=== PATIENT | female | born 1985 | race American Indian/Alaskan Native ===

== ENCOUNTER 2017-08-19 14:16 | Emergency (ER) | payer OTHER ==
[2017-08-19 14:53] VITALS: BMI 24.1
[2017-08-19 14:54] VITALS: RESP 18
[2017-08-19] MEDS ORDERED: Sodium Chloride 0.9% 1,000 ML IV STA (15:02)
--- NOTE | 2017-08-19 15:26 | ED PDOC ---
Arrival/HPI - General Chief Complaint: GI Problem Time Seen by Provider: 08/19/17 14:58 Historian: Patient - History of Present Illness Narrative History of Present Illness (Text): 08/19/17 15:24 32yo female with no PMHx present with complaint of epigastric abdominal pain and multiple episodes of nonbloody/bilious vomiting since 0330am. States she celebrated her birthday last night by drinking unknown amount of alcohol. She denies melena, hematemesis, hematochezia, urinary symptoms, chest pain, fever, chills, sick contact, diarrhea. Past Medical History - Provider Review Nursing Documentation Reviewed: Yes - Infectious Disease Hx of Infectious Diseases: None - Psychiatric Hx Substance Use: No - Anesthesia Hx Anesthesia: No Family/Social History - Physician Review Nursing Documentation Reviewed: Yes Family/Social History: Unknown Family HX Smoking Status: Never Smoked Hx Alcohol Use: Yes Hx Substance Use: No Allergies/Home Meds Allergies/Adverse Reactions: Allergies seafood Adverse Reaction (Uncoded 08/19/17 14:53) ANAPHYLAXIS Review of Systems - Physician Review All systems were reviewed & negative as marked: Yes - Review of Systems Constitutional: Normal Eyes: Normal ENT: Normal Respiratory: Normal Cardiovascular: Normal Gastrointestinal: Abdominal Pain, Nausea, Vomiting. absent: Constipation, Diarrhea, Hematochezia, Hematemesis Genitourinary Female: Normal Musculoskeletal: Normal Skin: Normal Neurological: Normal Endocrine: Normal Hemo/Lymphatic: Normal Psychiatric: Normal Physical Exam Vital Signs Reviewed: Yes Vital Signs Temp Pulse Resp BP Pulse Ox 08/19/17 16:22 103 H 18 107/73 96 08/19/17 14:54 98.4 F 102 H 18 98/63 L 99 Temperature: Afebrile Blood Pressure: Normal Pulse: Tachycardic Respiratory Rate: Normal Appearance: Positive for: Well-Appearing, Non-Toxic, Comfortable Pain Distress: None Mental Status: Positive for: Alert and Oriented X 3 - Systems Exam Head: Present: Atraumatic, Normocephalic Pupils: Present: PERRL Extroacular Muscles: Present: EOMI Conjunctiva: Present: Normal Mouth: Present: Moist Mucous Membranes Neck: Present: Normal Range of Motion Respiratory/Chest: Present: Clear to Auscultation, Good Air Exchange. No: Respiratory Distress, Accessory Muscle Use Cardiovascular: Present: Regular Rate and Rhythm, Normal S1, S2. No: Murmurs Abdomen: Present: Tenderness (RLQ), Normal Bowel Sounds, Guarding (Voluntary), Other (soft). No: Distention, Peritoneal Signs, Rebound, McBurney's Point Tender, Rovsing's Sign Present Back: Present: Normal Inspection Upper Extremity: Present: Normal Inspection. No: Cyanosis, Edema Lower Extremity: Present: Normal Inspection. No: Edema Neurological: Present: GCS=15, CN II-XII Intact, Speech Normal Skin: Present: Warm, Dry, Normal Color. No: Rashes Psychiatric: Present: Alert, Oriented x 3, Normal Insight, Normal Concentration Medical Decision Making ED Course and Treatment: 08/19/17 18:06 PT in ED for stated history. she had RLQ tenderness and leukocyte with a shift. Abdominal/Pelvis CT was ordered to r/o appendicitis and it was negative. On re evaluation pt states she feels better. she was able to tolerate PO challenge in ED. She will be DC home with a rx of Zofran and pepcid. Advised to f/u with her PMD. TRT ED for any new or worsening symptoms - Lab Interpretations Lab Results: 08/19/17 16:00 08/19/17 16:00 Lab Results 08/19/17 17:00: PT 12.8 H, INR 1.12 H, APTT 24.0 L 08/19/17 16:00: Alcohol, Quantitative 15 H 08/19/17 16:00: Sodium 146, Potassium 4.2, Chloride 108 H, Carbon Dioxide 24, Anion Gap 18, BUN 9, Creatinine 0.7, Est GFR ( Amer) > 60, Est GFR (Non- Af Amer) > 60, Random Glucose 91, Calcium 9.8, Total Bilirubin 0.3, AST 29, ALT 31, Alkaline Phosphatase 66, Total Protein 8.1, Albumin 4.3, Globulin 3.8, Albumin/Globulin Ratio 1.2, Lipase 41 08/19/17 16:00: WBC 14.8 H, RBC 3.98, Hgb 12.9, Hct 38.1, MCV 95.7, MCH 32.4, MCHC 33.9, RDW 13.3, Plt Count 291, MPV 9.7, Gran % 90.7 H, Lymph % (Auto) 6.9 L , Harney % (Auto) 2.3, Eos % (Auto) 0.0 L, Baso % (Auto) 0.1, Gran # 13.45 H, Lymph # (Auto) 1.0 L, Harney # (Auto) 0.3, Eos # (Auto) 0.0, Baso # (Auto) 0.02, Neutrophils % (Manual) 92 H, Lymphocytes % (Manual) 6 L, Monocytes % (Manual) 2 08/19/17 15:15: Urine Color Yellow, Urine Appearance Sl cloudy, Urine pH 7.0, Ur Specific [place] 1.020, Urine Protein Trace H, Urine Glucose (UA) Negative, Urine Ketones Negative, Urine Blood Negative, Urine Nitrate Negative, Urine Bilirubin Negative, Urine Urobilinogen 0.2, Ur Leukocyte Esterase Negative, Urine RBC 0 - 2, Urine WBC 0 - 2, Ur Epithelial Cells 4 - 5, Urine Bacteria Mod - RAD Interpretation Radiology Orders: 08/19/17 16:45 ABD & PELVIS IV CONTRAST ONLY [CT] Stat - Medication Orders Current Medication Orders: Discontinued Medications Famotidine (Pepcid) 20 mg IVP STAT STA Stop: 08/19/17 15:03 Last Admin: 08/19/17 16:12 Dose: 20 mg IVP Administration Document 08/19/17 16:12 LA (Rec: 08/19/17 16:12 LA [id number]) Charges for Administration # of IVP Administrations 1 Sodium Chloride (Sodium Chloride 0.9%) 1,000 mls @ 1,000 mls/hr IV .Q1H STA Stop: 08/19/17 16:01 Last Admin: 08/19/17 16:12 Dose: 1,000 mls/hr eMAR Start Stop Document 08/19/17 16:12 LA (Rec: 08/19/17 16:12 LA [id number]) Intravenous Solution Start Date 08/19/17 Start Time 16:12 Ketorolac Tromethamine (Toradol) 30 mg IVP STAT STA Stop: 08/19/17 15:03 Last Admin: 08/19/17 16:12 Dose: 30 mg MAR Pain Assessment Document 08/19/17 16:12 LA (Rec: 08/19/17 16:13 LA [id number]) Pain Reassessment Is this a pain reassessment? No Sleep Is patient sleeping during reassessment? No Presence of Pain Presence of Pain Yes Pain Scale Used Pain Scale Used Numeric Location Pain Location Body Site Generalized IVP Administration Document 08/19/17 16:12 LA (Rec: 08/19/17 16:13 LA [id number]) Charges for Administration # of IVP Administrations 1 Re-Assess: BREN Pain Assessment Document 08/19/17 17:12 LA (Rec: 08/19/17 17:15 LA [id number]) Pain Reassessment Is this a pain reassessment? Yes Sleep Is patient sleeping during reassessment? No Presence of Pain Presence of Pain Yes Pain Scale Used Pain Scale Used Numeric Location Pain Location Body Site Back Description Intensity of Pain at present 5 Ondansetron HCl (Zofran Inj) 4 mg IVP STAT STA Stop: 08/19/17 15:03 Last Admin: 08/19/17 16:13 Dose: 4 mg IVP Administration Document 08/19/17 16:13 LA (Rec: 08/19/17 16:13 LA [id number]) Charges for Administration # of IVP Administrations 1 Disposition/Present on Arrival - Present on Arrival Any Indicators Present on Arrival: No History of DVT/PE: No History of Uncontrolled Diabetes: No Urinary Catheter: No History of Decub. Ulcer: No History Surgical Site Infection Following: None - Disposition Have Diagnosis and Disposition been Completed?: Yes Diagnosis: Abdominal pain, Vomiting Disposition: HOME/ ROUTINE Disposition Time: 18:10 Patient Plan: Discharge Condition: STABLE Discharge Instructions (ExitCare): Abdominal Pain (ED) Additional Instructions: Follow up with your doctor Drink plenty of fluid and follow BRAT diet Return to ED for any new or worsening symptoms Prescriptions: Famotidine [Pepcid] 40 mg PO DAILY #15 tab Ondansetron ODT [Zofran ODT] 4 mg PO Q6 #7 odt Referrals: PCP,NO [Primary Care Provider] - Follow up with primary [facility] [place]] - Follow up with primary Forms: Digby (Uzbek)
[2017-08-19 15:27] LABS: URINE BILIRUBIN NEGATIVE (NEGATIVE); URINE BLOOD NEGATIVE (NEGATIVE); URINE GLUCOSE (UA) NEGATIVE (NEGATIVE); URINE LEUKOCYTE ESTERASE NEGATIVE Leu/uL (NEGATIVE); URINE NITRATE NEGATIVE (NEGATIVE); URINE PROTEIN TRACE mg/dL (<30 mg/dL); URINE UROBILINOGEN 0.2 E.U./dL (<1 E.U./dL)
[2017-08-19 15:28] LABS: URINE APPEARANCE SL CLOUDY (CLEAR); URINE COLOR YELLOW (YELLOW)
[2017-08-19 15:47] LABS: URINE RBC 0 - 2 /hpf (0-2); URINE WBC 0 - 2 /hpf (0-6)
[2017-08-19 15:48] LABS: URINE BACTERIA MOD (NEG)
[2017-08-19 16:25] LABS: BASO # 0.02 K/mm3 (0.0-2.0); BASO % 0.1 % (0.0-3.0); GRAN # 13.45 (1.4-6.5); GRAN % 90.7 % (50.0-68.0); HEMOGLOBIN 12.9 g/dL (12.0-16.0); LYMPH % 6.9 % (22.0-35.0); MEAN CELL VOLUME 95.7 fl (80.0-105.0); MEAN CORPUSCULAR HEMOGLOBIN 32.4 pg (25.0-35.0); MEAN CORPUSCULAR HGB CONC 33.9 g/dl (31.0-37.0); MEAN PLATELET VOLUME 9.7 fl (7.0-11.0); MONO # 0.3 (0.1-0.6); MONO % 2.3 % (1.0-6.0); PLATELET COUNT 291 10^3/uL (120.0-450.0); RBC 3.98 10^6/uL (3.5-6.1); RED CELL DISTRIBUTION WIDTH 13.3 % (11.5-14.5); WHITE BLOOD COUNT 14.8 10^3/ul (4.5-11.0)
[2017-08-19 16:36] LABS: ALB/GLOB RATIO 1.2 (1.1-1.8); ALBUMIN 4.3 g/dL (3.0-4.8); ALT/SGPT 31 U/L (7-56); AST/SGOT 29 U/L (14-36); BLOOD UREA NITROGEN 9 mg/dL (7-21); CALCIUM 9.8 mg/dL (8.4-10.5); GFR AFRICAN-AMERICAN > 60; GFR NON-AFRICAN AMERICAN > 60; LIPASE 41 U/L (23-300)
[2017-08-19 16:52] LABS: LYMPHOCYTE 6 % (22.0-35.0); MONOCYTE 2 % (1.0-6.0); NEUTROPHIL 92 % (50.0-70.0)
[2017-08-19 17:16] LABS: INR 1.12 (0.93-1.08); PROTHROMBIN TIME 12.8 SECONDS (9.4-12.5)
[2017-08-19] MEDS ORDERED: Iodixanol 320 MG/ML 100 ML BOTTLE IV ONE (17:31)
--- NOTE | 2017-08-19 18:01 | CT ---
PROCEDURE: CT Abdomen and Pelvis with contrast HISTORY: RLQ pain By history, negative test (concurrent with this examination). COMPARISON: None. TECHNIQUE: Contrast dose: 100 cc Visipaque 320. Radiation dose: Total exam DLP = 365.36 mGy-cm. This CT exam was performed using one or more of the following dose reduction techniques: Automated exposure control, adjustment of the mA and/or kV according to patient size, and/or use of iterative reconstruction technique. FINDINGS: LOWER THORAX: Unremarkable. LIVER: Unremarkable. No gross lesion or ductal dilatation. GALLBLADDER AND BILE DUCTS: Unremarkable. PANCREAS: Unremarkable. No gross lesion or ductal dilatation. SPLEEN: Unremarkable. ADRENALS: Unremarkable. No mass. KIDNEYS AND URETERS: Unremarkable. No hydronephrosis. No solid mass. VASCULATURE: Unremarkable. No aortic aneurysm. BOWEL: Unremarkable. No obstruction. No gross mural thickening. APPENDIX: No abnormalities to suggest acute appendicitis. No right lower quadrant inflammatory processes identified. PERITONEUM: Unremarkable. No free fluid. No free air. LYMPH NODES: Unremarkable. No enlarged lymph nodes. BLADDER: Unremarkable. REPRODUCTIVE: Heterogeneous appearance of the uterus suggest fibroids. BONES: No acute fracture. OTHER FINDINGS: None. IMPRESSION: No acute findings related to/accounting for the clinical presentation. Additional benign and/or incidental findings described above.
[2017-08-19 18:44] VITALS: BP 110/71; PULSE 109; TEMP 98; O2SAT 100
== END 2017-08-19 18:46 | disposition home or self-care (01) ==
LOC: ED 14:16
DX: R11.10 Vomiting, unspecified (principal); R10.13 Epigastric pain
CPT/HCPCS: 74177; 80053; 80320; 81001; 83690; 85025; 85610; 85730; 96374; 96375; 99284; J1885; J2405; J7040; Q9967